=== PATIENT | male | born 1940 | race Asian ===

== ENCOUNTER 2017-11-14 13:43 | Inpatient (IN) | payer MEDICAID ==
[~2017-11-14] VITALS: Ht 167.6 cm; Wt 76.2 kg
[~2017-11-14 13:43] MED LIST: ALBU8.5H8 INH; ASA81 PO; CAT.1 PO; FLO110 INH; FLUT16SP24 NS; HYDR-4038 PO; LOSA50TA3 PO; METO-442 PO; SIMV10TA2 PO
[2017-11-14 13:47] VITALS: BP_SYST 142
[2017-11-14] MEDS ORDERED: ASPIRIN 81 MG TAB.CHEW PO ONE (14:00)
[2017-11-14 14:24] LABS: BASOPHILS # (AUTO) 0.1 K/uL (0.0-0.2); BASOPHILS % (AUTO) 0.9 % (0.0-2.0); EOSINOPHILS # (AUTO) 0.5 K/uL (0.0-0.4); EOSINOPHILS % (AUTO) 5.9 % (0.0-4.0); HEMATOCRIT 33.8 % (36-54); HEMOGLOBIN 11.7 g/dL (14.0-18.0); LYMPHOCYTES # (AUTO) 1.7 K/uL (1.0-5.5); LYMPHOCYTES % (AUTO) 22.3 % (20.5-51.5); MEAN CORPUSCULAR HEMOGLOBIN 33 pg (27-31); MEAN CORPUSCULAR HGB CONC 35 % (32-36); MEAN CORPUSCULAR VOLUME 95 fL (79.0-98.0); MONOCYTES # (AUTO) 0.5 K/uL (0.0-1.0); MONOCYTES % (AUTO) 6.1 % (1.7-9.3); NEUTROPHILS # (AUTO) 4.9 K/uL (1.8-7.7); NEUTROPHILS % (AUTO) 64.8 % (40.0-70.0); PLATELET COUNT (AUTO) 263 K/uL (130-430); RED BLOOD CELL COUNT(AUTO) 3.57 MIL/uL (4.2-6.2); RED CELL DISTRIBUTION WIDTH 13.3 % (9.0-15.0); WHITE BLOOD COUNT (AUTO) 7.7 K/uL (4.8-10.8)
[2017-11-14 15:08] LABS: ANION GAP 4 (5-15); CHLORIDE 100 mmol/L (98-107); CREATININE 1.64 mg/dL (0.55-1.30); GLUCOSE 170 mg/dL (70-99); POTASSIUM 4.4 mmol/L (3.5-5.1); SODIUM SERUM 128 mmol/L (136-145); UREA NITROGEN, BLOOD 24 mg/dL (8-21)
[2017-11-14 15:13] LABS: PROTHROMBIN TIME 10.1 SECS (9.5-12.5)
[2017-11-14 15:15] LABS: ASPARTATE AMINOTRANSFERASE 24 U/L (10-37); TOTAL BILIRUBIN 0.4 mg/dL (0.0-1.0)
[2017-11-14 15:16] LABS: ALANINE AMINOTRANSFERASE 17 U/L (12-78); ALBUMIN 3.6 g/dL (3.4-4.8)
[2017-11-14] MEDS ORDERED: ONDANSETRON HCL 4 MG/2 ML VIAL IVP ONE (16:00)
[2017-11-14] MEDS ORDERED: MORPHINE 4 MG/ML INJ. SYRINGE IVP ONE (16:00)
[2017-11-14] MEDS ORDERED: LISI-600 PO (16:05)
[2017-11-14] MEDS ORDERED: ALLO100T PO (16:05)
[2017-11-14] MEDS ORDERED: CLOP300T2 PO (16:05)
[2017-11-14] MEDS ORDERED: TAMS-11 PO (16:05)
[2017-11-14] MEDS ORDERED: CARV6.2554 PO (16:05)
[2017-11-14] MEDS ORDERED: NOR10 PO (16:05)
[2017-11-14] MEDS ORDERED: FERR140T PO (16:05)
[2017-11-14] MEDS ORDERED: LORazepam 2 MG/ML VIAL IVP PRN (16:30)
[2017-11-14] MEDS ORDERED: HYDROcodone/ACETAMIN 10-325 MG TAB PO PRN (16:30)
[2017-11-14] MEDS ORDERED: HYDROcodone/ACETAMIN 5-325 MG TAB (NORCO/ VICODIN) PO PRN (16:30)
[2017-11-14] MEDS ORDERED: ACETAMINOPHEN 325 MG TABLET PO PRN (16:30)
[2017-11-14] MEDS ORDERED: ONDANSETRON HCL 4 MG/2 ML VIAL IVP PRN (16:30)
[2017-11-14 16:38] VITALS: BP_SYST 145
[2017-11-14] MEDS ORDERED: D5/0.45 NS 1,000 ML IV SCH (18:30)
[2017-11-14 19:55] VITALS: BP_SYST 138
[2017-11-14 20:00] VITALS: BP_SYST 138
[2017-11-14] MEDS: ALLOPURINOL 100 MG TABLET (ZYLOPRIM) PO SCH (20:54)
[2017-11-14] MEDS: CARVEDILOL 6.25 MG TABLET (COREG) PO SCH (20:55)
[2017-11-14] MEDS: NACL 0.9% 1,000 ML IV SCH (20:55)
[2017-11-14] MEDS ORDERED: amLODIPine BESYLATE 10 MG TABLET PO SCH (21:00)
[2017-11-14] MEDS ORDERED: TAMSULOSIN HCL 0.4 MG CAP PO SCH (21:00)
[2017-11-14] MEDS ORDERED: FERROUS SULFATE 140 MG TABLET.ER PO SCH (21:00)
[2017-11-14] MEDS: NORMAL SALINE 5 ML DISP.SYRIN IVF SCH (22:00)
[2017-11-15 00:28] VITALS: BP_SYST 138
[2017-11-15] MEDS: NORMAL SALINE 5 ML DISP.SYRIN IVF SCH ×2 (05:02→16:23)
[2017-11-15 06:52] LABS: BASOPHILS % (AUTO) 0.5 % (0.0-2.0); EOSINOPHILS # (AUTO) 0.5 K/uL (0.0-0.4); EOSINOPHILS % (AUTO) 7.5 % (0.0-4.0); HEMATOCRIT 31.9 % (36-54); HEMOGLOBIN 11.1 g/dL (14.0-18.0); LYMPHOCYTES # (AUTO) 1.8 K/uL (1.0-5.5); MEAN CORPUSCULAR HEMOGLOBIN 33 pg (27-31); MEAN CORPUSCULAR HGB CONC 35 % (32-36); MEAN CORPUSCULAR VOLUME 95 fL (79.0-98.0); MONOCYTES # (AUTO) 0.7 K/uL (0.0-1.0); MONOCYTES % (AUTO) 10.2 % (1.7-9.3); NEUTROPHILS # (AUTO) 4.3 K/uL (1.8-7.7); NEUTROPHILS % (AUTO) 57.8 % (40.0-70.0); PLATELET COUNT (AUTO) 254 K/uL (130-430); RED BLOOD CELL COUNT(AUTO) 3.35 MIL/uL (4.2-6.2); RED CELL DISTRIBUTION WIDTH 13.6 % (9.0-15.0); WHITE BLOOD COUNT (AUTO) 7.3 K/uL (4.8-10.8)
[2017-11-15 06:58] LABS: ANION GAP 5 (5-15); CALCIUM 9.3 mg/dL (8.4-11.0); CHLORIDE 102 mmol/L (98-107); CREATININE 1.31 mg/dL (0.55-1.30); GLUCOSE 98 mg/dL (70-99); PHOSPHORUS 3.3 mg/dL (2.7-4.5); POTASSIUM 5.2 mmol/L (3.5-5.1); SODIUM SERUM 133 mmol/L (136-145); UREA NITROGEN, BLOOD 19 mg/dL (8-21)
[2017-11-15 08:20] VITALS: BP_SYST 143
[2017-11-15] MEDS: CARVEDILOL 6.25 MG TABLET (COREG) PO SCH (08:33)
[2017-11-15] MEDS: ALLOPURINOL 100 MG TABLET (ZYLOPRIM) PO SCH (08:33)
[2017-11-15] MEDS ORDERED: CLOPIDOGREL BISULFATE 75 MG TABLET PO SCH (09:00)
[2017-11-15] MEDS ORDERED: LISINOPRIL 20 MG TABLET PO SCH (09:00)
[2017-11-15] MEDS: NACL 0.9% 1,000 ML IV SCH (09:35)
[2017-11-15 12:25] VITALS: BP_SYST 132
[2017-11-15 16:06] VITALS: BP_SYST 141
[2017-11-15] MEDS ORDERED: SODIUM POLYSTYRENE SULFONATE 15 GM/60 ML UDBTL PO ONE (18:00)
[2017-11-15 19:51] VITALS: BP_SYST 143
[2017-11-15] MEDS ORDERED: SIMVASTATIN 10 MG TABLET PO SCH (21:00)
== END 2017-11-15 20:17 | disposition home or self-care (01) | DRG 203 ==
LOC: SED 13:43 → STU 16:08
PROVIDERS: ADMIT Preventive Medicine Preventive Medicine/Occupational Environmental Medicine; ATTEND Preventive Medicine Preventive Medicine/Occupational Environmental Medicine
DX: M94.0 Chondrocostal junction syndrome [Tietze] (principal); N17.9 Acute kidney failure, unspecified; E87.5 Hyperkalemia; E87.1 Hypo-osmolality and hyponatremia; D64.9 Anemia, unspecified; J44.9 Chronic obstructive pulmonary disease, unspecified; N18.3 Chronic kidney disease, stage 3 (moderate); I12.9 Hypertensive chronic kidney disease with stage 1 through stage 4 chronic kidney disease, or unspecified chronic kidney disease; E66.9 Obesity, unspecified; E78.5 Hyperlipidemia, unspecified; M10.9 Gout, unspecified; N40.0 Benign prostatic hyperplasia without lower urinary tract symptoms; K57.90 Diverticulosis of intestine, part unspecified, without perforation or abscess without bleeding; R73.9 Hyperglycemia, unspecified; Z91.013 Allergy to seafood; Z90.49 Acquired absence of other specified parts of digestive tract; Z79.899 Other long term (current) drug therapy; Z68.27 Body mass index [BMI] 27.0-27.9, adult
CPT/HCPCS: 36415; 71045; 71250-TC; 76770; 80048; 80053; 82550-TC; 83735-TC; 84100-TC; 84484; 85025; 85610-TC; 85730-TC; 93005; 93306; 96374; 96375; 99285; J2270; J2405; J7030

== ENCOUNTER 2022-08-09 07:57 | Day surgery (SDC) | payer MEDICARE, MEDICAID ==
[~2022-08-09] VITALS: Ht 167.6 cm; Wt 77.1 kg
[~2022-08-09 07:57] MED LIST changes: -ALBU8.5H8 INH; +ALLO100T PO; -ASA81 PO; +CARV6.2554 PO; -CAT.1 PO; +CLOP300T2 PO; +FERR140T2 PO; -FLO110 INH; -FLUT16SP24 NS; -HYDR-4038 PO; +LISI20TA30 PO; -LOSA50TA3 PO; -METO-442 PO; +NOR10 PO; +SIMV-341 PO; -SIMV10TA2 PO; +TAMS-11 PO
[2022-08-09] MEDS ORDERED: MEPERIDINE 50 MG/ML VIAL ONE (10:01)
[2022-08-09] MEDS ORDERED: MIDAZOLAM HCL 5 MG/5 ML VIAL ONE (10:02)
[2022-08-09 13:55] VITALS: BP_SYST 150
== END 2022-08-09 12:00 | disposition home or self-care (01) ==
LOC: SDS 07:57 → SMU 07:58 → SDS 12:00
PROVIDERS: ATTEND Internal Medicine Gastroenterology
DX: R19.4 Change in bowel habit (principal); K64.8 Other hemorrhoids; K29.50 Unspecified chronic gastritis without bleeding; K21.00 Gastro-esophageal reflux disease with esophagitis, without bleeding; R13.10 Dysphagia, unspecified; Z86.010 Personal history of colon polyps; J44.9 Chronic obstructive pulmonary disease, unspecified; I10 Essential (primary) hypertension; E78.5 Hyperlipidemia, unspecified; Z87.891 Personal history of nicotine dependence; Z79.899 Other long term (current) drug therapy
CPT/HCPCS: 45378; 43239; 87081; 36415; 88305; 88312; 88313; 99152; 99153; G0378; J2250; J2175